=== PATIENT | male | born 1960 | race Two or more races ===

== ENCOUNTER 2022-08-25 06:17 | Inpatient (IN) | payer OTHER ==
[~2022-08-25] VITALS: Ht 165.1 cm; Wt 79.6 kg
[2022-08-25] MEDS ORDERED: ceFAZolin 1GM/50ML 100 ML IV ONE (06:38)
[2022-08-25] MEDS ORDERED: DexAMETHasone SOD PHOS 4 MG/1ML SDV INJ ONE (07:11)
[2022-08-25] MEDS ORDERED: BUPIVACAINE 0.25% INJ 50ML VIAL ONE (07:11)
[2022-08-25] MEDS ORDERED: EPINEPHrine HCL 1 MG/1 ML AMP ONE (07:11)
[2022-08-25] MEDS ORDERED: KETOROLAC TROMETH 30 MG/ML 1ML VIAL ONE (07:12)
[2022-08-25] MEDS ORDERED: PROPOFOL 10 MG/ML 20 ML IV ONE ×2 (07:12→08:18)
[2022-08-25] MEDS ORDERED: LIDOCAINE 2% (LOCAL ANESTH.) PF 5ml SDV ONE (07:12)
[2022-08-25] MEDS ORDERED: SODIUM CHLORIDE LOCK 10 ML ONE (07:12)
[2022-08-25] MEDS ORDERED: DexAMETHasone SOD PHOS 10MG/1ML VIAL INJ ONE (07:12)
[2022-08-25] MEDS ORDERED: GLYCOPYRROLATE 0.2 MG/ML 1ML VIAL ONE (07:12)
[2022-08-25] MEDS ORDERED: ONDANSETRON HCL 4 MG/2 ML VIAL ONE (07:12)
[2022-08-25] MEDS ORDERED: TRANEXAMIC ACID 20 ML ONE (07:30)
[2022-08-25] MEDS ORDERED: ROPIVACAINE 0.5% (5MG/ML) 20ML AMPULE IJ ONE (08:10)
[2022-08-25] MEDS ORDERED: VANCOMYCIN HCL 1000 MG VL ONE (09:06)
[2022-08-25] MEDS ORDERED: oxyCODONE HCL 5MG TAB PO PRN ×2 (10:15)
[2022-08-25] MEDS ORDERED: ACETAMINOPHEN 325 MG TAB PO PRN (10:15)
[2022-08-25] MEDS: ACETAMINOPHEN 325 MG TAB PO SCH (13:42)
[2022-08-25] MEDS: KETOROLAC TROMETH 30 MG/ML 1ML VIAL IV SCH (13:42)
[2022-08-25] MEDS: D5W/LACTATED RINGERS 1,000 ML IV SCH ×2 (13:50→20:43)
[2022-08-25 14:15] VITALS: BP_SYST 144; BP_DIAS 89; BP_DIAS 97
[2022-08-25] MEDS: ceFAZolin 2 GM/D5W100ml 100 ML IV SCH ×2 (16:04→22:50)
[2022-08-25 17:00] VITALS: BP 148/79
[2022-08-25 22:00] VITALS: BP 132/90
[2022-08-25] MEDS: PREGABALIN 25 MG CAP PO SCH (22:26)
[2022-08-26] MEDS: KETOROLAC TROMETH 30 MG/ML 1ML VIAL IV SCH ×3 (00:06→12:17)
[2022-08-26] MEDS: ACETAMINOPHEN 325 MG TAB PO SCH ×3 (00:06→12:18)
[2022-08-26 05:00] VITALS: BP 137/78
[2022-08-26 06:09] LABS: Potassium 3.6 mmol/L (3.5-5.1)
[2022-08-26] MEDS: D5W/LACTATED RINGERS 1,000 ML IV SCH (06:14)
[2022-08-26 06:23] LABS: Albumin 2.8 g/dL (3.4-5.0); BUN/Creatinine Ratio 24.7 (10.0-20.0); Calcium 8.1 mg/dL (8.5-10.1); Phosphorus 3.2 mg/dL (2.5-4.90)
[2022-08-26 08:07] LABS: Basophils # (auto) 0 10 ^3/uL (0-0.2); Basophils % (auto) 0.1 % (0.0-2.0); Eosinophils # (auto) 0 10 ^3/uL (0-0.8); Hematocrit 35.6 % (41.0-53.0); Hemoglobin 12.3 g/dL (13.5-17.5); Lymphocytes % (auto) 5.8 % (10.0-50.0); Mean Corpuscular Hemoglobin 33.2 pg (28.0-32.0); Mean Corpuscular Hgb Conc. 34.5 g/dL (32.0-36.0); Mean Corpuscular Volume 96.3 fL (80.0-100.0); Monocytes # (auto) 1.2 10 ^3/uL (0-1.3); Monocytes % (auto) 7.3 % (0.0-12.0); Neutrophils # (auto) 14.4 10 ^3/uL (1.6-8.6); Neutrophils % (auto) 86.8 % (37.0-80.0); White Blood Cell 16.6 10^3/uL (4.4-10.8)
[2022-08-26 09:00] VITALS: BP 137/82
[2022-08-26] MEDS ORDERED: ASPirin 81 mg TAB PO SCH (10:00)
[2022-08-26] MEDS: PREGABALIN 25 MG CAP PO SCH (10:37)
[2022-08-26 12:53] VITALS: BP 119/76
== END 2022-08-26 16:14 | disposition home or self-care (01) | DRG 326 ==
LOC: SUR 06:17 → OVERFLOW 10:07 → WEST WING 13:33
PROVIDERS: ADMIT Orthopaedic Surgery; ATTEND Orthopaedic Surgery
PROC: 0SRC069 Replacement of Right Knee Joint with Oxidized Zirconium on Polyethylene Synthetic Substitute, Cemented, Open Approach (ICD-10-PCS; principal; 2022-08-25 07:33)
DX: M17.11 Unilateral primary osteoarthritis, right knee (principal); D62 Acute posthemorrhagic anemia
CPT/HCPCS: 36415; 73562; 80069; 85025; 86850; 86900; 86901; 97110; 97116; 97163; G0378; J0171; J0690; J1100; J1885; J2001; J2405; J2704; J3490

== ENCOUNTER 2024-03-01 10:51 | Inpatient (IN) | payer OTHER ==
[2024-03-01] VITALS (7 sets, daily range): BP systolic 140–155; BP diastolic 82–94; PULSE 19–108; RESP 14–19; TEMP 98.3; O2SAT 91–98
[~2024-03-01] VITALS: Ht 162.6 cm; Wt 80.4 kg
[~2024-03-01 10:51] MED LIST: HYDR25TA5 PO
[2024-03-01] MEDS ORDERED: MORPHINE SULF PF 5 MG/10 ML VIAL ONE ×2 (11:23→11:39)
[2024-03-01] MEDS ORDERED: KETOROLAC TROMETH 30 MG/ML 1ML VIAL ONE (11:23)
[2024-03-01] MEDS ORDERED: fentaNYL CITRATE 100 MCG/2 ML VL ONE (11:39)
[2024-03-01] MEDS ORDERED: MIDAZOLAM HCL 2MG/2ML 2ml VIAL (1mg/ml) ONE (11:39)
[2024-03-01] MEDS ORDERED: PHENYLEPHRINE HCL 10 MG/ML VL IV ONE (12:47)
[2024-03-01] MEDS ORDERED: HYDROmorphone HCL 2 MG/ML VL/or syr IV PRN (13:00)
[2024-03-01] MEDS ORDERED: diphenhdrAMINE HCL 50 MG/1 ML VL IV PRN (13:00)
[2024-03-01] MEDS ORDERED: ONDANSETRON HCL 4 MG/2 ML VIAL IV PRN (13:00)
[2024-03-01] MEDS ORDERED: DexAMETHasone SOD PHOS 10MG/1ML VIAL INJ IV PRN (13:00)
[2024-03-01] MEDS ORDERED: ePHEDrine SULFATE 50 MG/ML AMP IV PRN (13:00)
[2024-03-01] MEDS ORDERED: hydrALAZINE HCL 20 MG/ML VL IV PRN (13:00)
[2024-03-01] MEDS ORDERED: MIDAZOLAM HCL 2MG/2ML 2ml VIAL (1mg/ml) IV PRN (13:00)
[2024-03-01] MEDS: ROPIVACAINE 0.5% (5MG/ML) 20ML AMPULE IJ ONE (13:16)
[2024-03-01] MEDS ORDERED: DexAMETHasone SOD PHOS 10MG/1ML VIAL INJ ONE ×2 (13:18→14:39)
--- NOTE | 2024-03-01 14:29 | DVHOP2 ---
Operative Report - 2 Report Details Date: 03/01/24 Preop Diagnosis: LEFT KNEE DEGENERATIVE ARTHRITIS Postop Diagnosis: Left knee degenerative arthritis Surgeon: Lolis Brown MD Anesthesiologist: Bobby Anesthesia: Local, Regional Drains: Talita closed wound suction dressing Implant: DonJoy size six femur PS, size six tibial base plate size 14 polyethylene size 32 patella Consent: The patient was informed of the risks and benefits of the procedure. These include but are not limited to complications of anesthesia, postoperative infection, incomplete relief of symptoms, recurrence of symptoms, damage to blood vessels, nerves and tendons, deep venous thrombosis, pulmonary embolism and possible need for repeat surgery in the future. Complications: None Estimated Blood Loss: 50 cc Fluids: See anesthesia record Findings: Left knee varus deformity with significant tibial bone loss, osteophytes, varus deformity, denuded cartilage with eburnated bone Indications for Surgery: Left knee degenerative arthritis with severe pain and functional impairment despite adequate nonoperative management Name of Procedure Performed Left total knee arthroplasty Procedure Details Procedure Details: The patient was brought to the operating room and placed on the table in the supine position after being given spinal anesthetic with adequate analgesia obtained. Surgical timeout was performed verifying patient, laterality and procedure Preop patient received IV Ancef, cefepime and IV tranexamic acid. Tourniquet was applied to the lower extremity. Extremity was elevated, exsanguinated Esmarch, and tourniquet inflated. Lower extremity was prepped and draped in sterile fashion. Midline incision was made followed by medial arthrotomy. I exposed the anterior medial and lateral tibial plateau and the anterior distal femur. Bovie and aqua mantis were used for hemostasis. I excised the anterior meniscal tissue with Bovie. [ I excised the anterior cruciate ligament with Bovie.] I excised a portion of the fat pad with Bovie. The patella was everted and the knee flexed. I drilled the distal femur and suctioned the hole to reduce the risk of fat emboli. I inserted intramedullary guide with 5 degree valgus setting. I pinned the distal femoral cutting block anteriorly. Intramedullary rico was removed. Distal femoral cut was made and the block removed. I brought my attention to the tibia setting up the external cutting jig for the tibia paying attention to slope, rotation and varus valgus alignment. I set the depth and pinned the block. I used the external alignment rico to aid in checking alignment. Bone cut was made and bone removed releasing soft tissue attachments with Bovie. Cutting block removed. I then checked the extension gap and deemed adequate and removed the femur and tibia pins. I flexed the knee and applied the femoral sizing guide to the femur. I checked the size and external rotation setting at 90 degrees to Whitesides line and checking the epicondylar axis. I drilled the holes then removed the sizing guide and pin. I then tapped on the 4 in 1 cutting block and checked with the judah wing anteriorly to make sure that I would not notch then pinned the block. Cuts were made and the block and pins were removed. Bone was removed with curved osteotome. I used a rongeur to remove any remaining osteophytes at the femur and tibia. I then used a lamina burglar alarm inspector to open up the back alternating between the medial and lateral side. Any remaining meniscal tissue was excised with scalpel. I used curved osteotome, curette and rongeur to remove any posterior osteophytes. [I injected a total of 20 cc of 0.5% ropivacaine into the posterior capsule to facilitate the planned adductor block.] I prophylactically coagulated with aqua mantis. I then applied the cutting guide for the box cut and pinned it. Box cut made then template and pins removed. Bone removed and soft tissue attachments released with Bovie. I then tapped on the femoral trial. I then brought my attention back to the tibia sizing it. I used the external alignment rico to make sure that rotation and alignment were good. I made a Bovie dmitri at the tibial tray dmitri identifying rotation for later use. [I then brought my attention to the patella. I sequentially dissected soft tissue with Bovie. I checked the thickness with caliper. I set the appropriate depth of cut on the cutting guide. I attached the cutting guide made my cut. I then sized the patella and made my drill holes. I then placed the patella trial with appropriate depth based on overall precut thickness. ] The patella tracked nicely without thumb pressure. I removed the trials. I pinned the tibial base plate then used a Reamer and keel punched then the base plate and pins were removed. I used a drill bit to drill the eburnated bone at the medial aspect of the tibial plateau. The implants were brought into the field while bone preparation was started. I used both normal saline irrigation and the CarboJet to prepare the bone. Once cement was ready I applied cement to the tibial implant and tibial bone tapped it on and removed excess cement in usual fashion. In similar fashion I tapped on the femoral implant. I inserted the trial polyethylene and brought the knee into 30 degrees flexion. [I then applied the patella implant in similar fashion holding pressure with the pressurization device.] I irrigated with xperience irrigant. Once cement cured, I checked stability and range of motion as well as patella tracking. I tried various polyethylene trials and decided on the size 14 standard. tourniquet was released and hemostasis maintained with aqua mantis. I inserted the polyethylene implant and again checked stability. I used a 2 grams of vancomycin half of which was placed deep and half superficial. I repaired the extensor mechanism with the knee in flexion with #1 Ethibond interrupted [id number]. Deep subcutaneous tissue was closed with 0 Vicryl. Superficial subcutaneous tissue was closed with 2-0 vicryl interrupted. Skin was closed with dell. I then applied the [talita closed wound suction]. Patient tolerated the procedure well and was brought to recovery room in stable condition. Condition Stable Disposition Still a Patient LOLIS BROWN MD Mar 01, 2024 14:29
[2024-03-01] MEDS ORDERED: ACETAMINOPHEN 325 MG TAB PO PRN (14:30)
[2024-03-01] MEDS ORDERED: oxyCODONE HCL 5MG TAB PO PRN ×2 (14:30)
--- NOTE | 2024-03-01 15:11 | DVH ---
XY L KNEE 3V XRAY, INDICATION: Postop TECHNICAL DATA: Frontal , oblique and lateral views were obtained of the left knee. COMPARISON: XY R KNEE 3V XRAY on DOS: 08/25/22 FINDINGS: Left knee arthroplasty appears intact and in good alignment. Medial, lateral and patellofemoral armaan rtment joint spaces are maintained. Alignment is anatomic. Post surgical changes with subcutaneous e mphysema. No joint effusion is demonstrated. IMPRESSION: Left knee arthroplasty appears intact and in good alignment.
[2024-03-01] MEDS ORDERED: ACETAMINOPHEN 325 MG TAB PO SCH (18:00)
[2024-03-01] MEDS: EPINEPHrine HCL 1 MG/1 ML AMP ONE (18:50)
[2024-03-01] MEDS: VANCOMYCIN HCL 1000 MG VL ONE (18:50)
[2024-03-01] MEDS: CEFEPIME 1GM/ 50ML 50 ML IV ONE (18:50)
[2024-03-01] MEDS: TETRACAINE 1% INJ 2 ML VIAL IJ ONE (18:50)
[2024-03-01] MEDS: BUPIVACAINE 0.25% INJ 50ML VIAL ONE (18:50)
[2024-03-01] MEDS: ceFAZolin 2 GM/D5W100ml 100 ML IV ONE (18:50)
[2024-03-01] MEDS ORDERED: ATOR20TA50 PO (20:58)
[2024-03-01] MEDS ORDERED: IBUP-1456 PO (20:58)
[2024-03-01] MEDS ORDERED: LOSA-534 PO (20:59)
[2024-03-01] MEDS: ceFAZolin 2 GM/D5W50ml 50 ML IV SCH (22:00)
[2024-03-01] MEDS: PREGABALIN 25 MG CAP PO SCH (22:07)
[2024-03-01] MEDS: D5W/LACTATED RINGERS 1,000 ML IV SCH (22:09)
[2024-03-02] VITALS (30 sets, daily range): BP systolic 106–153; BP diastolic 74–94; PULSE 94–141; RESP 16–93; TEMP 98.1–99.8; O2SAT 90–99
[2024-03-02] MEDS: KETOROLAC TROMETH 30 MG/ML 1ML VIAL IV SCH (01:06)
[2024-03-02] MEDS: ceFAZolin 2 GM/D5W50ml 50 ML IV SCH (05:40)
[2024-03-02] MEDS: ASPirin 81 mg TAB PO SCH (09:24)
[2024-03-02] MEDS: hydroCHLOROthiazide 25 MG TAB PO SCH (09:25)
[2024-03-02] MEDS: ONDANSETRON HCL 4 MG/2 ML VIAL IV ONE (11:39)
--- NOTE | 2024-03-02 12:21 | DVHDS2 ---
Discharge Summary Date of Admission Mar 01, 2024 at 14:29 Date of Discharge: Mar 02, 2024 Admitting Diagnosis Left knee degenerative arthritis Wounds: Left knee wound Brief Hx & Hospital Course: Patient was admitted after a left total knee arthroplasty performed without complications. Patient did well postoperatively with physical therapy. Pain well controlled with p.o. medication. Patient's postop labs and vitals stable. Plan is for discharge to home. Operations or Procedures Left total knee arthroplasty Condition at Discharge: Stable Final Diagnosis/Problems List Left knee degenerative arthritis Secondary Diagnosis: Acute expected postop blood loss anemia Discharge Disposition: Home SNF Discharge Will this Physician continue t: Yes Discharge Instruct/Medications Diet: Regular Activity: Light activity Activity comment: Weightbearing as tolerated with walker CPM 2 hours 3 times a day. Increase flexion 10 per day up to 90 Follow Up/Referral: follow-up 10-14 days as scheduled Medications: Percocet and aspirin sent to pharmacy. Care Plan: Keep dressing dry and intact. CPM as ordered Aspirin twice a day for 30 days Percocet as needed for pain Follow-up 10-14 days as scheduled Walker weight-bearing as tolerated left lower extremity Discharge Statement: "Patient was advised to return to the ER or call 911 if any headaches, dizziness, shortness of breath, chest pain, abdominal pain, bleeding, fevers, or worsening of medical condition. Patient was counseled about treatment plan, medications, possible side effects, patientverbalized understanding. All questions were answered to the best of my ability. This discharge took greater then 30 minutes in planning, reviewing documentati on, counseling the patient, and discussing with other team members." ASSESSMENT ASSESSMENT Assessment Left knee degenerative arthritis LOLIS BROWN MD Mar 02, 2024 12:21
--- NOTE | 2024-03-02 12:23 | DVHPN2 ---
Progress Note - Dictate Date Seen: Mar 02, 2024 Medical Necessity Reason Pt with a Central, PICC or Fol: No Subjective No complaints vital signs Vital Sign Date Time Temp Pulse Resp B/P (MAP) Pulse Ox O2 Delivery O2 Flow Rate FiO2 03/02/24 11:00 127 93 03/02/24 09:25 125/84 03/02/24 09:02 98.5 22 98.5 03/01/24 20:23 Room Air* 0 21 Total Intake and Output 03/01/24 03/01/24 03/02/24 15:00 23:00 07:00 Intake Total 100 ml 600 ml Balance 100 ml 600 ml medications Current Medications Medications Dose Ordered Sig/Alex Route Start Time Stop Time Status Last Admin Dose Admin Diphenhydramine HCl 25 mg Q4HP PRN IV 03/01/24 13:00 Ondansetron HCl 4 mg Q4HP PRN IV 03/01/24 13:00 Dextrose/Lactated Ringer's 1,000 ml @ 100 mls/hr Q10H IV 03/01/24 14:30 03/01/24 22:09 100 MLS/HR Acetaminophen 650 mg Q4HP PRN PO 03/01/24 14:30 Ketorolac Tromethamine 15 mg Q6HR IV 03/01/24 18:00 03/06/24 17:59 03/02/24 11:37 15 MG Pregabalin 50 mg BID PO 03/01/24 22:00 03/02/24 09:24 50 MG Oxycodone HCl 5 mg Q4HP PRN PO 03/01/24 14:30 Oxycodone HCl 10 mg Q4HP PRN PO 03/01/24 14:30 Aspirin 81 mg BID PO 03/02/24 10:00 03/02/24 09:24 81 MG Hydrochlorothiazide 12.5 mg DAILY PO 03/02/24 10:00 03/02/24 09:25 12.5 MG Cefazolin Sodium/ Dextrose 50 ml @ 50 mls/hr Q8HR IV 03/02/24 06:00 03/02/24 22:59 03/02/24 05:40 50 MLS/HR objective Alert and oriented x4 Left knee dressing intact No calf or pedal edema Distal neurovascularly intact Assessment/Plan Postop day 1. s/p left total knee arthroplasty Stable postop Acute expected postop blood loss anemia Plan: Discharge as per orders Plan discussed with: Patient, Spouse LOLIS BROWN MD Mar 02, 2024 12:23
[2024-03-03] VITALS (11 sets, daily range): BP systolic 127–147; BP diastolic 76–91; PULSE 105–112; RESP 16–21; TEMP 98.1–99.4; O2SAT 94–99
== END 2024-03-03 11:35 | disposition home or self-care (01) | DRG 326 ==
LOC: SUR 10:51 → TELE 14:29 → TELE-CENTR 18:50
PROVIDERS: ADMIT Orthopaedic Surgery; ATTEND Student in an Organized Health Care Education/Training Program
PROC: 0SRD069 Replacement of Left Knee Joint with Oxidized Zirconium on Polyethylene Synthetic Substitute, Cemented, Open Approach (ICD-10-PCS; principal; 2024-03-01 12:32)
DX: M17.12 Unilateral primary osteoarthritis, left knee (principal); D62 Acute posthemorrhagic anemia; M21.162 Varus deformity, not elsewhere classified, left knee; Z79.899 Other long term (current) drug therapy
CPT/HCPCS: 73562; 86850; 86900; 86901; 97110; 97116; 97163; 97530; G0378; J0171; J1100; J1885; J2250; J3490